=== PATIENT | female | born 1990 | race Caucasian/White ===

== ENCOUNTER → 2022-04-04 06:29 | Outpatient (CLI) | payer SELFPAY | PROVIDERS: Visit Provider Obstetrics & Gynecology | DX: Z34.90 Encounter for supervision of normal pregnancy, unspecified, unspecified trimester (principal) | CPT/HCPCS: 86403 ==

== ENCOUNTER 2022-04-10 04:41 | Inpatient (IN) | payer SELFPAY ==
[2022-04-10 05:49] VITALS: BMI 28.4
[2022-04-10 05:57] VITALS: BP 128/83; PULSE 74; RESP 19; TEMP 36.8; O2SAT 99; BMI 28.4
[2022-04-10 06:34] LABS: Coronavirus 19, PCR Not Detected (NotDetected); Influenza A, PCR Not Detected (NotDetected); Influenza B, PCR Not Detected (NotDetected)
[2022-04-10 06:46] LABS: Basophils % 0.1 % (0.1-2.0); Eosinophils % 0.4 % (0.1-12.0); Hematocrit 31.8 % (37.0-47.0); Hemoglobin 11.5 g/dL (12.2-16.2); Lymphocytes # 1.5 K/mm3 (0.7-4.5); Lymphocytes % 32.3 % (10-50); Mean Corpuscular HGB Conc 36.2 g/dL (31.8-35.4); Mean Corpuscular Hemoglobin 30.1 pg (27.0-31.2); Mean Corpuscular Volume 83.2 fl (81-99); Mean Platelet Volume 8.3 fl (7.4-10.4); Monocytes # 0.3 K/mm3 (0.1-1.0); Monocytes % 5.6 % (1.7-9.3); Neutrophils # 2.9 K/mm3 (1.8-7.8); Neutrophils % 61.6 % (37.0-80.0); Platelet Count 122 K/mm3 (142-424); Red Blood Count 3.82 M/mm3 (4.20-5.40); Red Cell Distribution Width 12.9 % (11.5-17.5); White Blood Count 4.6 K/mm3 (4.8-10.8)
[2022-04-10 07:19] LABS: Amphetamine/Metha Screen,Urine Negative ng/ml (<1000)
[2022-04-10 07:20] LABS: Barbiturates Screen,Urine Negative ng/ml (<200); Benzodiazepines Screen,Urine Negative ng/ml (<200)
[2022-04-10 07:21] LABS: Cannabinoid Screen,Urine Negative ng/ml (<50); Cocaine Screen,Urine Negative ng/ml (<300)
[2022-04-10 07:22] LABS: Methadone Screen,Urine Negative ng/ml (<300)
[2022-04-10 07:23] LABS: Opiate Screen,Urine Negative ng/ml (<300)
[2022-04-10 07:24] LABS: Phencyclidine Screen,Urine Negative ng/ml (<25)
--- NOTE | 2022-04-10 07:42 | HMH.OBAPHP ---
OB - H&P: HPI Antepartum - History of Present Illness Chief complaint: Scheduled induction of labor History of present illness: Mrs Caty Contreras is a very pleasant 32 yo at 39w2d, by LMP and confirmed by 31 week ultrasound, who presents to [facility] for scheduled elective induction of labor. Patient is Confucianism. She has history of x 5. 5th with second trimester vaginal delivery of twins who did not survive. She admits to intermittent contractions. No leakage of fluid or vaginal bleeding. Good movement. - History of Present Criteria for establishing EDC:: based on LMP only care: limited care Obstetrical complications: none Medical complications: none - Labs Blood type: other (Patient reports she is Rh negative. Unsure of blood type) GBS status: negative [facility] History I have reviewed the patient's past medical history: Yes *Have you ever received a pneumonia vaccine?: No *Have you received a flu vaccine this season?: No Other Surgeries: Yes: No Previous Surgery Amputation: No Fractures: No - *Social History Smoking Status: Never smoker Alcohol Intake: never Alcohol Intake Frequency:: 0-2 drinks per day Substance Use Type: denies use *Occupational Status:: unemployed *Travel in the last 8 weeks: None Family Hx:: No significant family history : 6 Para: 4 Review of Systems - Review of Systems Review of systems:: pertinent systems reviewed and negative unless documented below Meds Home Medications Medication Instructions Recorded Confirmed Type ferrous sulfate 325 mg (65 mg 325 mg PO DAILY 02/16/22 04/10/22 History iron) tablet prenat.vits,tricia,[id number]-[id number] 1 tab PO DAILY 02/16/22 04/10/22 History Allergies Allergy/AdvReac Type Severity Reaction Status Date / Time No Known Allergies Allergy Verified 03/10/22 11:01 OB - H&P: Exam - Physical Exam Vital signs: Temp Pulse Resp BP Pulse Ox 98.3 F 74 19 128/83 99 04/10/22 05:57 04/10/22 05:57 04/10/22 05:57 04/10/22 05:57 04/10/22 05:57 - Constitutional no acute distress - Routine HEENT Exam Head: Present: normocephalic Eye: Absent: conjunctivae pink ENT: Present: mucous membranes moist - Routine Respiratory Exam Present: CTA bilaterally - Routine Cardiovascular Exam Present: RRR - Routine Abdominal Exam Present: soft (Gravid). Absent: tenderness - Routine Exam External: Present: normal urethra appearance. Absent: lacerations, vulvar erythema, vulvar tenderness - Routine Extremities Exam Present: full ROM. Absent: edema, calf tenderness - Routine Neurological Exam Present: alert, oriented X3 - Detailed Labor and Delivery Exam Dilation (cm): 3 Effacement (%): 60 Cervix position: anterior station: -3 Consistency: medium Membranes: artificially ruptured (Attempted amniotomy, no fluid noted ) Baseline heart rate: 145 monitor accelerations: Present monitor decelerations: Variable intermediate frame tender variability: Moderate (11-25) OB - Results - Labs Labs: Short CBC 04/10/22 Range/Units 06:15 WBC 4.6 L (4.8-10.8) K/mm3 Hgb 11.5 L (12.2-16.2) g/dL Hct 31.8 L (37.0-47.0) % Plt Count 122 L (142-424) K/mm3 OB - A/P Antepartum (1) with 39 completed weeks gestation Status: Acute (2) Confucianism ancestry Status: Chronic (3) Rh negative state in antepartum period Status: Acute - Additional Plan Planning to breastfeed?: Yes Plan: expectant management Additional Information:: Admit to L&D for induction of labor with Pitocin GBS negative Close monitoring
--- NOTE | 2022-04-10 10:13 | P.PN_ITS ---
Labor Note - Subjective: Date: 04/10/22 Time: 10:13 regular contraction Comment:: Tolerating contractions without epidural - Objective: NST:: Reactive Contractions:: every 2-3 minutes Cervical Dilation:: 3-4 Effacement:: 75% Station: -2 Membranes: artificially ruptured (at 1008) Comment:: clear fluid noted - Fetus: Monitoring?: Yes monitoring type:: External - Assessment: Labor progressing?: Yes Patient Problems: All Active Problems with 39 completed weeks gestation (Acute) Adventism ancestry (Chronic) Rh negative state in antepartum period (Acute) (Acute) - Plan: Continue to monitor?: Yes
[2022-04-10 10:42] LABS: Microscopic, Urine URINE MICROSCOPIC (MICROSCOPIC)
[2022-04-10 10:45] LABS: Appearance,Urine CLEAR (Clear); Blood, Urine Negative (Negative); Color,Urine YELLOW (Yellow); Glucose,Urine (UA) Negative (Negative); Ketones,Urine Negative (Negative); Leukocyte Esterase,Urine Negative (Negative); Nitrate,Urine Negative (Negative); Protein,Urine 1+ (Negative); Specific Gravity, Urine >= 1.030 (1.005-1.030); Urobilinogen,Urine 0.2 EU/dl (0.2)
[2022-04-10 10:48] LABS: Bilirubin,Urine 1+ (Negative)
[2022-04-10 11:15] LABS: Bacteria,Urine Trace /lpf; Calcium Oxalate Crystals,Urine 2+ /lpf
--- NOTE | 2022-04-10 12:51 | HMH.DN ---
- Delivery Note Delivery Date:: 04/10/22 Delivery Time:: 12:40 Anesthesia Type: None Was labor medically induced?: Yes Induction method: per pitocin protocol Gestational age (weeks): 39 Infant delivered prior to 39 weeks?: No Gender: Male at 1 minute: 8 at 5 minutes: 9 Delivery Procedure:: Mom complete without epidural. Head delivered spontaneously over intact perineum with normal uterus expulsion, no maternal effort with RN at bedside. Loose nuchal cord x 1 was reduced. Anterior shoulder followed by posterior shoulder and remainder of body delivered spontaneously. Baby placed on maternal abdomen, mouth and nares bulb suctioned, warmed/dried and stimulated. Delayed cord clamping was performed for 60 seconds. Cord was clamped. Cord blood was obtained. Placenta delivered spontaneously and intact. No lacerations. Mom and baby were skin to skin and doing well after delivery. Live male baby (baby's name is Obed) APGARs 8 ,9 EBL 100 cc Placental Delivery Description: Spontaneous
--- NOTE | 2022-04-10 12:55 | HMH.OBDCSM ---
General - General Admission date:: 04/10/22 Discharge date: 04/10/22 (Okay to discharge to home when stable) HPI - History of Present Illness History of present illness: Mrs Caty Contreras is 32 yo at 39w2d, by LMP, admitted to [facility] for scheduled elective induction of labor. GBS negative. Hospital Course Hospital Course: Mrs Caty Contreras is a 32 yo , by LMP, admitted to [facility] for scheduled elective induction of labor. GBS negative. She underwent induction of labor with Pitocin and amniotomy. Clear fluid noted. She had a normal spontaneous vaginal delivery of a baby boy, name Obed, on 04/10/23 APGARs 8, 9. EBL 100 cc. Vital signs stable. Mom and baby were doing well after delivery. Objective Vital signs: Temp Pulse Resp BP Pulse Ox 98.3 F 74 19 128/83 99 04/10/22 05:57 04/10/22 05:57 04/10/22 05:57 04/10/22 05:57 04/10/22 05:57 no acute distress - *Routine HEENT Exam Head: Present: normocephalic Eye: Absent: conjunctivae pink ENT: Present: mucous membranes moist - *Routine Respiratory Exam Present: CTA bilaterally - *Routine Cardiovascular Exam Present: RRR - *Routine Abdominal Exam Present: soft. Absent: tenderness, distended - *Routine Exam External: Present: normal urethra appearance. Absent: lacerations, vulvar erythema - *Routine Extremities Exam Present: full ROM. Absent: edema, calf tenderness Results Labs on day of discharge: Labs from last 24 hours 04/10/22 04/10/22 04/10/22 06:15 06:15 06:15 WBC RBC Hgb Hct MCV MCH MCHC RDW Plt Count MPV Neut % (Auto) Lymph % (Auto) [place] % (Auto) Eos % (Auto) Baso % (Auto) Neut # (Auto) Lymph # (Auto) [place] # (Auto) Eos # (Auto) Baso # (Auto) Urine Color Urine Appearance Urine pH Ur Specific [place] Urine Protein Urine Glucose (UA) Urine Ketones Urine Blood Urine Nitrate Urine Bilirubin Urine Urobilinogen Ur Leukocyte Esterase Urine RBC Urine WBC Ur Squamous Epith Cells Calcium Oxalate Crystal Urine Bacteria Urine Opiates Screen Urine Methadone Screen Ur Barbituates Screen Ur Phencyclidine Scrn Ur Amphetamines Screen U Benzodiazepines Scrn Urine Cocaine Screen U Marijuana (THC) Screen SARS-CoV-2 (PCR) Not detected Influenza A Untype (PCR) Not detected Influenza Type B (PCR) Not detected Blood Type A Negative Antibody Screen Positive Antibody Identification Pending 04/10/22 04/10/22 04/10/22 06:15 06:00 06:00 WBC 4.6 L RBC 3.82 L Hgb 11.5 L Hct 31.8 L MCV 83.2 MCH 30.1 MCHC 36.2 H RDW 12.9 Plt Count 122 L MPV 8.3 Neut % (Auto) 61.6 Lymph % (Auto) 32.3 [place] % (Auto) 5.6 Eos % (Auto) 0.4 Baso % (Auto) 0.1 Neut # (Auto) 2.9 Lymph # (Auto) 1.5 [place] # (Auto) 0.3 Eos # (Auto) 0.0 Baso # (Auto) 0.0 Urine Color Yellow Urine Appearance Clear Urine pH 6.0 Ur Specific [place] >= 1.030 Urine Protein 1+ Urine Glucose (UA) Negative Urine Ketones Negative Urine Blood Negative Urine Nitrate Negative Urine Bilirubin 1+ A Urine Urobilinogen 0.2 Ur Leukocyte Esterase Negative Urine RBC None Urine WBC 3-5 Ur Squamous Epith Cells 5-10 Calcium Oxalate Crystal 2+ Urine Bacteria Trace Urine Opiates Screen Negative Urine Methadone Screen Negative Ur Barbituates Screen Negative Ur Phencyclidine Scrn Negative Ur Amphetamines Screen Negative U Benzodiazepines Scrn Negative Urine Cocaine Screen Negative U Marijuana (THC) Screen Negative SARS-CoV-2 (PCR) Influenza A Untype (PCR) Influenza Type B (PCR) Blood Type Antibody Screen Antibody Identification DS: Diagnosis - Discharge Diagnosis (1) with 39 completed wee
[2022-04-10 19:20] VITALS: PULSE 57; RESP 18; TEMP 36.5
[2022-04-11 05:01] VITALS: BP 108/71; PULSE 56; RESP 17; TEMP 36.7; O2SAT 98
[2022-04-11 06:47] LABS: Hematocrit 31.4 % (37.0-47.0); Hemoglobin 11.1 g/dL (12.2-16.2)
[2022-04-11 07:19] LABS: HIV Screen 4th Generation wRfx Non Reactive (Non Reactive); Hepatitis B Surface Antigen Negative (Negative)
[2022-04-11 08:31] LABS: Rubella Antibodies, IgG 2.01 index (Immune >0.99)
--- NOTE | 2022-04-11 08:52 | HMH.OBDCSM ---
General - General Admission date:: 04/10/22 Discharge date: 04/11/22 HPI - History of Present Illness History of present illness: Mrs Caty Contreras is 32 yo at 39w2d, by LMP, admitted to [facility] for scheduled elective induction of labor. GBS negative. PPD # 1 She is doing well. No complaints or concerns. She is breast feeding. Light lochia. Voiding without difficulty. Passing flatus. Tolerating regular diet. Denies headaches, vision changes and swelling. Hospital Course Hospital Course: Mrs Caty Contreras is a 32 yo , by LMP, admitted to [facility] for scheduled elective induction of labor on 04/10/22. GBS negative. She underwent elective induction of labor with Pitocin and amniotomy. Clear fluid noted. She had a normal spontaneous vaginal delivery of a baby boy, named Obed, 7 lb 4 oz, on 04/10/23. APGARs 8, 9. EBL 100 cc. Vital signs stable. Mom and baby were doing well after delivery. PPD # 1 She was doing well. She had no chief complaints. Reported decreased lochia. She was urinating without difficulty. Passing flatus. Pain was controlled. She had no nausea, vomiting, fever/chills, chest pain or shortness of breath. Vitals were stable. Heart was regular rate and rhythm. Lungs were clear to auscultation. Abdomen was soft, nontender, uterine fundus firm and below umbilicus. Extremities were non-edematous and she had no calf tenderness to palpation. Normal hospital course Rhogam Administration: Given Objective Vital signs: Temp Pulse Resp BP Pulse Ox 98.1 F 56 L 17 108/71 L 98 04/11/22 05:01 04/11/22 05:01 04/11/22 05:01 04/11/22 05:01 04/11/22 05:01 no acute distress - *Routine HEENT Exam Head: Present: normocephalic Eye: Absent: conjunctivae pink ENT: Present: mucous membranes moist - *Routine Respiratory Exam Present: CTA bilaterally - *Routine Cardiovascular Exam Present: RRR - *Routine Abdominal Exam Present: soft. Absent: tenderness, distended - *Routine Extremities Exam Present: full ROM. Absent: edema, calf tenderness - *Routine Neurological Exam Present: alert, oriented X3 Results Labs on day of discharge: Labs from last 24 hours 04/11/22 04/11/22 04/10/22 06:27 06:27 06:15 Hgb 11.1 L Hct 31.4 L Urine Color Urine Appearance Urine pH Ur Specific [place] Urine Protein Urine Glucose (UA) Urine Ketones Urine Blood Urine Nitrate Urine Bilirubin Urine Urobilinogen Ur Leukocyte Esterase Urine RBC Urine WBC Ur Squamous Epith Cells Calcium Oxalate Crystal Urine Bacteria Hep Bs Antigen Negative HIV 1&2 Ag/Ab, 4th Gen Non reactive Rubella IgG Antibody 2.01 Screen Negative Baby's Rh Status Positive Rhogam Infusion Rhogam release 04/10/22 06:00 Hgb Hct Urine Color Yellow Urine Appearance Clear Urine pH 6.0 Ur Specific [place] >= 1.030 Urine Protein 1+ Urine Glucose (UA) Negative Urine Ketones Negative Urine Blood Negative Urine Nitrate Negative Urine Bilirubin 1+ A Urine Urobilinogen 0.2 Ur Leukocyte Esterase Negative Urine RBC None Urine WBC 3-5 Ur Squamous Epith Cells 5-10 Calcium Oxalate Crystal 2+ Urine Bacteria Trace Hep Bs Antigen HIV 1&2 Ag/Ab, 4th Gen Rubella IgG Antibody Screen Baby's Rh Status Rhogam Infusion DS: Diagnosis - Discharge Diagnosis (1) with 39 completed weeks gestation Status: Acute (2) [facility] ancestry Status: Chronic (3) Rh negative state in antepartum period Status: Acute Discharge Plan - Patient Discharge Instructions ACTIVITY: Continue current activity DIET: regular diet Additional Instructions: Nothing in the vagina for 6 weeks No tub baths Drink plenty of fluids Patient Instructions: Depression, Hemorrhage, DI for Labor and Delivery, Vaginal , DI for Pre-eclampsia, [facility] Post Part
[2022-04-11 09:00] VITALS: BP 121/81; PULSE 64; RESP 16; TEMP 36.6; O2SAT 99
[2022-04-11 11:13] LABS: Rapid Plasma Reagin Ab Titer Non Reactive (NonRea<1:1)
== END 2022-04-11 15:45 | disposition home or self-care (01) | DRG 807 ==
PROVIDERS: Admitting Provider Obstetrics & Gynecology; Visit Provider Obstetrics & Gynecology
DX: O69.81X0 Labor and delivery complicated by cord around neck, without compression, not applicable or unspecified (principal); Z37.0 Single live birth; Z3A.39 39 weeks gestation of pregnancy; Z23 Encounter for immunization
CPT/HCPCS: 59409; 36415; 59025; 80305; 81001; 85014; 85018; 85025; 85461; 86592; 86762; 86850; 86870; 87340; C9803; J2790; U0003; U0005